=== PATIENT | male | born 1990 | race Caucasian/White ===

== ENCOUNTER 2019-01-26 11:40 | Emergency (ER) | payer OTHER ==
[~2019-01-26] VITALS: Ht 177.8 cm; Wt 77.1 kg
[~2019-01-26 11:40] MED LIST: NAPR-1071 PO; NAPR-243 PO
--- NOTE | 2019-01-26 12:30 | ED Cardiac General ---
History of Present Illness General Chief Complaint: Cardiac/General Problems Stated Complaint: LOW HEART RATE Nursing Triage Note: PT AMBULATED TO ROOM 3 PT STATES NEED TO HR CHECKED OUT STATES WAS 52 ON [employer], NEED TO HAVE CHECKED BY BECAUSE GOING TO BY DEPLOYED IN MAY. DENIES CHEST PAIN STATES HAS HAD LOWER HR IN PAST History of Present Illness Date Seen by Provider: Jan 26, 2019 Time Seen by Provider: 12:10 Initial Comments 28-year-old male presents for holes in the 50s during his physical for the [employer]. He denies any chest pain. He has always been an avid runner and exe rcises daily, denies using any supplements. He was concerned because at his last physical his pulse was under 60 and the [employer] stated that it would be considered abnormal. He's never had chest pain in the past, reflux, shortness of air, or palpitations. No family members have before the age 50 because of sudden cardiac events. Associated Systoms: Denies Symptoms Allergies and Home Medications Allergies Coded Allergies: No Known Drug Allergies (Unverified , 10/29/13) Patient Home Medication List Home Medication List Reviewed: Yes Review of Systems Review of Systems Constitutional: no symptoms reported, see HPI Cardiovascular: No Symptoms Reported Past Tkbidos-Ostoxh-Vrfeja Hx Past Med/Social Hx: Reviewed Nursing Past Med/Soc Hx Patient Social History Alcohol Use: Rarely Uses Number of Drinks Today: 0 Recreational Drug Use: No Smoking Status: Never a Smoker Recent Foreign Travel: No Contact w/Someone Who Travel: No Recent Infectious Disease Expo: No Recent Hopitalizations: No Immunizations Up To Date Tetanus Booster (TDap): Less than 5yrs Past Medical History Surgeries: No Respiratory: No Cardiac: No Neurological: No Reproductive Disorders: No Sexually Transmitted Disease: No HIV/AIDS: No Gastrointestinal: No Musculoskeletal: No Endocrine: No Cancer: No Psychosocial: Yes ADD/ADHD Integumentary: No Blood Disorders: No Physical Exam Vital Signs Vital Signs - First Documented 01/26/19 12:03 Temp 98.1 Pulse 58 Resp 18 B/P (MAP) 137/90 (106) Pulse Ox 98 Capillary Refill : Less Than 3 Seconds Height, Weight, BMI Height: 5'10.00" Weight: 170lbs. oz. [id number]; BMI Method:Estimated General Appearance: No Apparent Distress, WD/WN HEENT: PERRL/EOMI, TMs Normal, Normal ENT Inspection, Pharynx Normal Neck: Full Range of Motion, Normal Inspection, Non Tender, Supple Respiratory: Chest Non Tender, Lungs Clear, Normal Breath Sounds Cardiovascular: Regular Rate, Rhythm, No Murmur, Normal Peripheral Pulses, Other (rate has been 60 to 80s, sinus rhythm. at rest, has dropped to 58. ) Gastrointestinal: Normal Bowel Sounds, Non Tender, Soft Extremity: Normal Capillary Refill, Normal Inspection, Normal Range of Motion, No Pedal Edema Neurologic/Psychiatric: Alert, Oriented x3, No Motor/Sensory Deficits Skin: Normal Color, Warm/Dry Progress/Results/Core Measures Results/Orders My Orders Orders - MARIANO DRISCOLL Ekg Tracing (01/26/19 12:02) Vital Signs/I&O 01/26/19 01/26/19 12:03 12:37 Temp 98.1 98.1 Pulse 58 83 Resp 18 18 B/P (MAP) 137/90 (106) 126/76 (93) Pulse Ox 98 95 Blood Pressure Mean: 106 Initial ECG Impression Date: Jan 26, 2019 Initial ECG Impression Time: 12:09 Initial ECG Rate: 73 Initial ECG Rhythm: Normal Sinus Initial ECG Intervals: Normal Initial ECG Intervals DE 156, QRSD 90, QT 380, QTC 419. [place] P 70, QRS 83, T 36. Initial ECG Impression: Normal Initial ECG Comparisson: No Previous ECG Available Comment Reviewed with Dr. Lewis, concurred with interpretation. Departure Impression Primary Impression: Bradycardia Disposition: 01 HOME, SELF-CARE Condition: Improved Departure-Patient Inst. Decision time for Depature: 12:25 Referrals: NO,LOCAL PHYSICIAN (PCP/Family) Primary Care Physician Patient Instructions: Bradycardia (DC) Add. Discharge Instructions: Continue with activities as tolerated. No restrictions for the [employer]. EKG within normal limits. Follow-up with your normal physicals. Return to the emergency department for new, urgent health care needs. All discharge instructions reviewed with patient and/or family. Voiced understanding. Work/School Note: Work Release Form Date Seen in the Emergency Department: Jan 26, 2019 Return to Work: Jan 27, 2019 Restrictions: No Restrictions Other Restrictions Listed Below: No restrictions, Resting Heart Rate in the 50s is normal for this patient MARIANO DRISCOLL Jan 26, 2019 12:30
[2019-01-26 12:37] VITALS: BP 126/76
== END 2019-01-26 12:37 | disposition home or self-care (01) ==
LOC: EDUNIT# 11:40 → ER 11:41
DX: R00.1 Bradycardia, unspecified (principal); F90.9 Attention-deficit hyperactivity disorder, unspecified type
CPT/HCPCS: 93005